=== PATIENT | male | born 1950 | race Caucasian/White ===

== ENCOUNTER → 2017-02-22 | Day surgery (SDC) | payer MEDICARE, OTHER ==
[~2017-02-22] MED LIST: ALBU18HF2 IH; ATOR40TA70 PO; CARV3.1242 PO; FURO40TA5 PO; LISI-186 PO; SPIR25TA4 PO
== END | disposition home or self-care (01) ==
LOC: CCL 05:39
PROVIDERS: ATTEND Internal Medicine Clinical Cardiac Electrophysiology
DX: I50.22 Chronic systolic (congestive) heart failure (principal); I42.0 Dilated cardiomyopathy; I44.7 Left bundle-branch block, unspecified; Z53.8 Procedure and treatment not carried out for other reasons

== ENCOUNTER 2017-08-03 09:05 | Day surgery (SDC) | payer MEDICARE, OTHER ==
[~2017-08-03] VITALS: Ht 175.3 cm; Wt 81.6 kg
[~2017-08-03 09:05] MED LIST changes: -CARV3.1242 PO; +POTA10TA15 PO
[2017-08-03 10:26] LABS: BASOPHILS % 0.5 % (0.0-2.0); EOSINOPHILS % 2.8 % (0.0-5.0); HEMATOCRIT. 42.1 % (42.0-52.0); HEMOGLOBIN. 14.4 g/dL (14.0-18.0); LYMPHOCYTES % 19.7 % (20.0-50.0); MEAN CORPUSCULAR HEMOGLOBIN 30.9 pg (28.0-32.0); MEAN CORPUSCULAR VOLUME 90.3 fL (80.0-94.0); MEAN PLATELET VOLUME 7.5 fl (7.4-10.4); PLATELET 172 x1000/uL (130-400); PROTHROMBIN TIME 10.9 sec (9.4-11.6); RED BLOOD CELL COUNT 4.66 mill/uL (4.7-6.1)
[2017-08-03 10:31] LABS: CARBON DIOXIDE 28 mEq/L (21-32); CHLORIDE 104 mEq/L (98-107)
[2017-08-03] MEDS ORDERED: LIDOCAINE HCL 1% 20ML VIAL (Pyxis) INJ ONE (11:30)
[2017-08-03] MEDS ORDERED: PROPOFOL 200MG/20ML VIAL IV ONE (11:30)
[2017-08-03] MEDS ORDERED: SUCCINYLCHOLINE CHLORIDE 200MG/10ML VIAL IV ONE (11:30)
[2017-08-03] MEDS ORDERED: MIDAZOLAM HCL 2 MG/2 ML VIAL ONE (11:44)
[2017-08-03] MEDS ORDERED: FENTANYL CITRATE/PF 50MCG/ML 2ML VIAL ONE (11:44)
[2017-08-03] MEDS ORDERED: HYDROMORPHONE HCL/PF 2MG/ML CPJ IV PRN (12:00)
[2017-08-03] MEDS ORDERED: LABETALOL HCL 20MG/4ML CARPUJECT IV PRN (12:00)
[2017-08-03] MEDS ORDERED: MEPERIDINE HCL/PF 25MG/ML CPJ IV PRN (12:00)
[2017-08-03] MEDS ORDERED: ONDANSETRON HCL 4MG/2ML VIAL IV PRN (12:00)
== END 2017-08-03 15:00 | disposition home or self-care (01) ==
LOC: CCL 09:05
PROVIDERS: ATTEND Internal Medicine Clinical Cardiac Electrophysiology
DX: I49.01 Ventricular fibrillation (principal); I50.9 Heart failure, unspecified; I42.0 Dilated cardiomyopathy; I44.7 Left bundle-branch block, unspecified
CPT/HCPCS: 36415; 80048; 85025; 85610; 93005; 93642; J0330; J2250; J3010; J3490; J2704

== ENCOUNTER 2019-07-13 00:57 | Inpatient (IN) | payer MEDICARE, MEDICAID ==
[~2019-07-13] VITALS: Ht 175.3 cm; Wt 83.9 kg
[~2019-07-13 00:57] MED LIST changes: -SPIR25TA4 PO; +SPIR25TA6 PO
[2019-07-13] MEDS ORDERED: SODIUM CHLORIDE 0.9% 1,000 ML IV ONE (01:34)
[2019-07-13 02:18] LABS: BASOPHILS % 0.6 % (0.0-2.0); EOSINOPHILS % 1.4 % (0.0-5.0); HEMATOCRIT. 42.5 % (42.0-52.0); HEMOGLOBIN. 14.5 g/dL (14.0-18.0); LYMPHOCYTES % 15.5 % (20.0-50.0); MEAN CORPUSCULAR HEMOGLOBIN 32.2 pg (28.0-32.0); MEAN CORPUSCULAR VOLUME 94.3 fL (80.0-94.0); MEAN PLATELET VOLUME 7.8 fl (7.4-10.4); MONOCYTES % 5.7 % (2.0-8.0); NEUTROPHILS % 76.8 % (40.0-76.0); PLATELET 206 x1000/uL (130-400); RED BLOOD CELL COUNT 4.51 mill/uL (4.7-6.1); RED CELL DISTRIBUTION WIDTH 13.9 % (11.6-14.6)
[2019-07-13 02:38] LABS: CHLORIDE 102 mEq/L (98-107)
[2019-07-13 02:43] LABS: ETHANOL BLOOD < 10 mg/dL
[2019-07-13 03:40] LABS: CLARITY URINE CLOUDY (CLEAR); COLOR URINE YELLOW (YELLOW); KETONES URINE TRACE (NEGATIVE); LEUKOCYTE ESTERASE URINE 2+ (NEGATIVE); NITRITE URINE NEGATIVE (NEGATIVE); OCCULT BLOOD URINE 3+ (NEGATIVE); PH URINE 7.5 (4.5-8.0); PROTEIN URINE 2+ (NEGATIVE)
[2019-07-13 04:06] LABS: *AMPHETAMINES SCREEN URINE NEGATIVE (NEGATIVE); *BARBITURATES SCREEN URINE NEGATIVE (NEGATIVE); *BENZODIAZEPINES SCREEN URINE NEGATIVE (NEGATIVE); *COCAINE SCREEN URINE NEGATIVE (NEGATIVE)
[2019-07-13 04:07] LABS: CANNABINOID URINE SCREEN NEGATIVE (NEGATIVE); METHADONE URINE SCREEN NEGATIVE (NEGATIVE); OPIATES URINE SCREEN NEGATIVE (NEGATIVE); PHENCYCLIDINE URINE SCREEN NEGATIVE (NEGATIVE)
[2019-07-13] MEDS ORDERED: CEFTRIAXONE 1 G PREMIX 50 ML IV NR (04:45)
[2019-07-13 08:00] VITALS: BP 96/60
[2019-07-13 08:10] VITALS: BP 96/60
[2019-07-13] MEDS ORDERED: ACETAMINOPHEN 650MG SUPP PR PRN (09:00)
[2019-07-13] MEDS ORDERED: DIPHENHYDRAMINE 50MG/ML VIAL IV PRN (09:00)
[2019-07-13] MEDS ORDERED: NA PHOS,M-B/NA PHOS,DI-BA ENEMA 118ML PR PRN (09:00)
[2019-07-13] MEDS ORDERED: GUAIFENESIN 200MG/10ML SUGAR FREE UDC PO PRN (09:00)
[2019-07-13] MEDS ORDERED: MAGNESIUM/ALUMINUM HYDROXIDE/SIMETHICONE 30ML UDC PO PRN (09:00)
[2019-07-13] MEDS ORDERED: ONDANSETRON HCL 4MG/2ML INJ IV PRN (09:00)
[2019-07-13] MEDS ORDERED: CLONIDINE 0.1MG TABLET PO PRN (09:00)
[2019-07-13] MEDS ORDERED: IPRATROPIUM/ALBUTEROL 0.5-3(2.5)MG/3ML NEB INH PRN (09:00)
[2019-07-13] MEDS ORDERED: ACETAMINOPHEN 650MG/20.3ML UDC GT PRN (09:00)
[2019-07-13] MEDS ORDERED: DOCUSATE SODIUM 100MG CAPSULE PO PRN (09:00)
[2019-07-13] MEDS: ENOXAPARIN 40MG/0.4ML SYR SUBCUT SCH (10:04)
[2019-07-13] MEDS: LEVOFLOXACIN 500MG PREMIX 100 ML IV SCH (11:32)
[2019-07-13 12:00] VITALS: BP 102/69
[2019-07-13] MEDS: SODIUM CHLORIDE 0.9% INJ 3ML FLUSH IVF SCH ×2 (13:17→22:29)
[2019-07-13] MEDS: HALOPERIDOL 0.5MG TABLET PO PRN ×2 (13:38→22:27)
[2019-07-13] MEDS: ACETAMINOPHEN 325MG TABLET PO PRN (14:56)
[2019-07-13] MEDS: NICOTINE 7MG PATCH TD SCH (15:44)
[2019-07-13 16:00] VITALS: BP 99/57
[2019-07-13 20:00] VITALS: BP 103/58
[2019-07-13 21:09] VITALS: BP 100/65
[2019-07-14] VITALS: BP 105/68
[2019-07-14] MEDS: CEFTRIAXONE 1 G PREMIX 50 ML IV SCH (05:18)
[2019-07-14] MEDS: SODIUM CHLORIDE 0.9% INJ 3ML FLUSH IVF SCH ×3 (05:22→21:32)
[2019-07-14 07:44] LABS: BASOPHILS % 1.1 % (0.0-2.0); EOSINOPHILS % 3.9 % (0.0-5.0); HEMATOCRIT. 38.1 % (42.0-52.0); HEMOGLOBIN. 13.1 g/dL (14.0-18.0); LYMPHOCYTES % 32.2 % (20.0-50.0); MEAN CORPUSCULAR HEMOGLOBIN 32.3 pg (28.0-32.0); MEAN CORPUSCULAR VOLUME 93.5 fL (80.0-94.0); MEAN PLATELET VOLUME 8.5 fl (7.4-10.4); MONOCYTES % 10.4 % (2.0-8.0); NEUTROPHILS % 52.4 % (40.0-76.0); PLATELET 173 x1000/uL (130-400); RED BLOOD CELL COUNT 4.07 mill/uL (4.7-6.1)
[2019-07-14 07:51] LABS: CHLORIDE 106 mEq/L (98-107)
[2019-07-14 08:00] VITALS: BP 102/54
[2019-07-14 08:00] LABS: LDL CHOLESTEROL 94 mg/dL (5-100)
[2019-07-14 08:02] LABS: HDL CHOLESTEROL 50 mg/dL (40-59)
[2019-07-14] MEDS: NICOTINE 7MG PATCH TD SCH (08:53)
[2019-07-14] MEDS: ENOXAPARIN 40MG/0.4ML SYR SUBCUT SCH (08:54)
[2019-07-14] MEDS: LEVOFLOXACIN 500MG PREMIX 100 ML IV SCH (10:16)
[2019-07-14 12:00] VITALS: BP 103/48
[2019-07-14] MEDS ORDERED: HYDROCODONE/ACETAMINOPHEN 5/325MG TABLET PO PRN (14:15)
[2019-07-14] MEDS ORDERED: HYDRALAZINE 20MG/ML VIAL IV PRN (14:15)
[2019-07-14] MEDS ORDERED: LORAZEPAM 2MG/ML CPJ IV PRN (14:15)
[2019-07-14] MEDS ORDERED: LACTULOSE 20G/30ML UDC PO PRN (14:15)
[2019-07-14 14:27] LABS: BG BASE EXCESS -2.3 mmol/L (-2.0-2.0); BG CARBOXYHEMOGLOBIN 1.1 % (0.5-1.5); BG DEOXYHEMOGLOBIN 3.8 % (0.0-5.0); BG HCO3 ACT 21.3 mmol/L (22.0-26.0); BG METHEMOGLOBIN 0.2 % (0.0-1.5); BG OXYGEN SATURATION 96.1 % (92.0-98.5); BG OXYHEMOGLOBIN 94.9 % (94.0-97.0); BG PH 7.427 (7.350-7.450); BG SAMPLE SITE RIGHT RADIAL; BG TOTAL HEMOGLOBIN 13.7 g/dL (12.0-18.0); BG VENT MODE ROOM AIR
[2019-07-14] MEDS: FUROSEMIDE 40MG/4ML VIAL IVP SCH (15:08)
[2019-07-14 16:00] VITALS: BP 94/62
[2019-07-14 19:09] LABS: PROTHROMBIN TIME 10.8 sec (9.6-11.0)
[2019-07-14 20:00] VITALS: BP 95/68
[2019-07-14 20:54] LABS: PROSTRATE SPECIFIC AG TOTAL 1.85 ng/mL (0.0-4.0)
[2019-07-14] MEDS: ACETAMINOPHEN 325MG TABLET PO PRN (21:28)
[2019-07-14] MEDS: HALOPERIDOL 0.5MG TABLET PO PRN (23:08)
[2019-07-15] VITALS: BP 112/77
[2019-07-15 04:00] VITALS: BP 107/71
[2019-07-15] MEDS: CEFTRIAXONE 1 G PREMIX 50 ML IV SCH (05:00)
[2019-07-15] MEDS: SODIUM CHLORIDE 0.9% INJ 3ML FLUSH IVF SCH ×3 (06:00→21:17)
[2019-07-15 08:00] VITALS: BP 97/76
[2019-07-15 08:20] LABS: HEMATOCRIT 39.3 % (42.0-52.0); HEMOGLOBIN 13.9 g/dL (14.0-18.0); MEAN CORPUSCULAR HEMOGLOBIN 32.8 pg (28.0-32.0); PLATELET 195 x1000/uL (130-400); RED BLOOD CELL COUNT 4.23 mill/uL (4.7-6.1); RED CELL DISTRIBUTION WIDTH 13.9 % (11.6-14.6)
[2019-07-15] MEDS: FUROSEMIDE 40MG/4ML VIAL IVP SCH (09:00)
[2019-07-15] MEDS: ENOXAPARIN 40MG/0.4ML SYR SUBCUT SCH (09:28)
[2019-07-15] MEDS: NICOTINE 7MG PATCH TD SCH (09:28)
[2019-07-15 11:17] LABS: CHLORIDE 107 mEq/L (98-107)
[2019-07-15] MEDS ORDERED: LORAZEPAM 2MG/ML CPJ IV PRN (14:15)
[2019-07-15] MEDS: FUROSEMIDE 40MG TABLET PO SCH (14:21)
[2019-07-15] MEDS: LEVOFLOXACIN 500MG TABLET PO SCH (14:21)
[2019-07-15] MEDS: ACETAMINOPHEN 325MG TABLET PO PRN (14:31)
[2019-07-15 16:00] VITALS: BP 115/54
[2019-07-15 20:00] VITALS: BP 109/54
[2019-07-15] MEDS: HALOPERIDOL 0.5MG TABLET PO PRN (21:17)
[2019-07-16] VITALS: BP 114/70
[2019-07-16 04:00] VITALS: BP 140/88
[2019-07-16] MEDS: SODIUM CHLORIDE 0.9% INJ 3ML FLUSH IVF SCH ×3 (05:58→20:34)
[2019-07-16] MEDS: LEVOFLOXACIN 500MG TABLET PO SCH (10:08)
[2019-07-16] MEDS: FUROSEMIDE 40MG TABLET PO SCH (10:09)
[2019-07-16] MEDS: ENOXAPARIN 40MG/0.4ML SYR SUBCUT SCH (10:09)
[2019-07-16] MEDS: NICOTINE 7MG PATCH TD SCH (10:10)
[2019-07-16 12:00] VITALS: BP 100/70
[2019-07-16 16:00] VITALS: BP 104/71
[2019-07-16 20:00] VITALS: BP 104/74
[2019-07-16] MEDS: HALOPERIDOL 0.5MG TABLET PO PRN (21:42)
[2019-07-17] VITALS: BP 93/63
[2019-07-17 04:00] VITALS: BP 108/69
[2019-07-17] MEDS: SODIUM CHLORIDE 0.9% INJ 3ML FLUSH IVF SCH ×3 (06:27→22:00)
[2019-07-17 08:00] VITALS: BP 102/62
[2019-07-17] MEDS: FUROSEMIDE 40MG TABLET PO SCH (09:14)
[2019-07-17] MEDS: ENOXAPARIN 40MG/0.4ML SYR SUBCUT SCH (09:15)
[2019-07-17] MEDS: NICOTINE 7MG PATCH TD SCH (09:15)
[2019-07-17] MEDS: LEVOFLOXACIN 500MG TABLET PO SCH (11:55)
[2019-07-17 16:00] VITALS: BP 95/54
[2019-07-17 20:00] VITALS: BP 109/48
[2019-07-17] MEDS: HALOPERIDOL 0.5MG TABLET PO PRN (23:11)
[2019-07-17] MEDS: ATORVASTATIN CALCIUM 10MG TABLET PO SCH (23:13)
[2019-07-18 04:00] VITALS: BP 107/60
[2019-07-18] MEDS: SODIUM CHLORIDE 0.9% INJ 3ML FLUSH IVF SCH ×3 (06:32→20:10)
[2019-07-18 08:00] VITALS: BP 95/63
[2019-07-18] MEDS: FUROSEMIDE 40MG TABLET PO SCH (09:03)
[2019-07-18] MEDS: NICOTINE 7MG PATCH TD SCH (09:03)
[2019-07-18] MEDS: ENOXAPARIN 40MG/0.4ML SYR SUBCUT SCH (09:04)
[2019-07-18 09:29] LABS: HEMATOCRIT 36.4 % (42.0-52.0); HEMOGLOBIN 12.4 g/dL (14.0-18.0); MEAN CORPUSCULAR HEMOGLOBIN 32.1 pg (28.0-32.0); PLATELET 159 x1000/uL (130-400); RED BLOOD CELL COUNT 3.88 mill/uL (4.7-6.1); RED CELL DISTRIBUTION WIDTH 13.8 % (11.6-14.6)
[2019-07-18 09:37] LABS: CHLORIDE 106 mEq/L (98-107)
[2019-07-18 12:00] VITALS: BP 94/57
[2019-07-18] MEDS: LEVOFLOXACIN 500MG TABLET PO SCH (12:50)
[2019-07-18] MEDS: ACETAMINOPHEN 325MG TABLET PO PRN (12:51)
[2019-07-18 17:17] VITALS: BP 98/59
[2019-07-18] MEDS: HALOPERIDOL 0.5MG TABLET PO PRN (18:40)
[2019-07-18 20:00] VITALS: BP 104/65
[2019-07-18] MEDS: RISPERIDONE 0.5MG TABLET PO SCH (20:10)
[2019-07-18] MEDS: ATORVASTATIN CALCIUM 10MG TABLET PO SCH (20:10)
[2019-07-18] MEDS: DIPHENHYDRAMINE 50MG/ML VIAL IV PRN (23:15)
[2019-07-18 23:56] VITALS: BP 111/75
[2019-07-19 04:00] VITALS: BP 115/75
[2019-07-19] MEDS: SODIUM CHLORIDE 0.9% INJ 3ML FLUSH IVF SCH ×3 (06:30→21:01)
[2019-07-19 08:00] VITALS: BP 101/59
[2019-07-19] MEDS: RISPERIDONE 0.5MG TABLET PO SCH (09:22)
[2019-07-19] MEDS: ENOXAPARIN 40MG/0.4ML SYR SUBCUT SCH (09:23)
[2019-07-19] MEDS: FUROSEMIDE 40MG TABLET PO SCH (09:23)
[2019-07-19] MEDS: NICOTINE 7MG PATCH TD SCH (09:23)
[2019-07-19] MEDS: LEVOFLOXACIN 500MG TABLET PO SCH (10:44)
[2019-07-19 12:00] VITALS: BP 99/63
[2019-07-19 16:00] VITALS: BP 91/58
[2019-07-19] MEDS: ACETAMINOPHEN 325MG TABLET PO PRN (16:12)
[2019-07-19 20:00] VITALS: BP 109/67
[2019-07-19] MEDS: ATORVASTATIN CALCIUM 10MG TABLET PO SCH (21:01)
[2019-07-19] MEDS: RISPERIDONE 1MG TABLET PO SCH (21:34)
[2019-07-20] VITALS: BP 111/73
[2019-07-20 04:00] VITALS: BP 104/55
[2019-07-20] MEDS: HALOPERIDOL 0.5MG TABLET PO PRN (04:57)
[2019-07-20] MEDS: ACETAMINOPHEN 325MG TABLET PO PRN ×3 (04:58→22:29)
[2019-07-20] MEDS: SODIUM CHLORIDE 0.9% INJ 3ML FLUSH IVF SCH ×3 (05:00→23:01)
[2019-07-20 08:00] VITALS: BP 94/60
[2019-07-20] MEDS: ENOXAPARIN 40MG/0.4ML SYR SUBCUT SCH (10:00)
[2019-07-20] MEDS: RISPERIDONE 1MG TABLET PO SCH ×2 (10:00→22:38)
[2019-07-20] MEDS: NICOTINE 7MG PATCH TD SCH (10:00)
[2019-07-20] MEDS: FUROSEMIDE 40MG TABLET PO SCH (10:00)
[2019-07-20 12:00] VITALS: BP 104/44
[2019-07-20] MEDS: LEVOFLOXACIN 500MG TABLET PO SCH (12:29)
[2019-07-20 16:00] VITALS: BP 104/66
[2019-07-20 20:00] VITALS: BP 101/46
[2019-07-20] MEDS: ATORVASTATIN CALCIUM 10MG TABLET PO SCH (22:37)
[2019-07-21] VITALS: BP_SYST 100; BP_SYST 94; BP_DIAS 58; BP_DIAS 59
[2019-07-21 04:00] VITALS: BP 94/59
[2019-07-21] MEDS: SODIUM CHLORIDE 0.9% INJ 3ML FLUSH IVF SCH ×3 (05:39→22:00)
[2019-07-21 07:05] LABS: EOSINOPHILS % 5.8 % (0.0-5.0); HEMATOCRIT. 33.4 % (42.0-52.0); HEMOGLOBIN. 11.6 g/dL (14.0-18.0); LYMPHOCYTES % 34.2 % (20.0-50.0); MEAN CORPUSCULAR HEMOGLOBIN 32.4 pg (28.0-32.0); MEAN CORPUSCULAR VOLUME 93.7 fL (80.0-94.0); MEAN PLATELET VOLUME 8.4 fl (7.4-10.4); MONOCYTES % 8.9 % (2.0-8.0); NEUTROPHILS % 50.1 % (40.0-76.0); PLATELET 161 x1000/uL (130-400); RED BLOOD CELL COUNT 3.57 mill/uL (4.7-6.1); RED CELL DISTRIBUTION WIDTH 13.9 % (11.6-14.6)
[2019-07-21 07:14] LABS: CHLORIDE 109 mEq/L (98-107)
[2019-07-21] MEDS: FUROSEMIDE 40MG TABLET PO SCH (09:17)
[2019-07-21] MEDS: ENOXAPARIN 40MG/0.4ML SYR SUBCUT SCH (09:17)
[2019-07-21] MEDS: NICOTINE 7MG PATCH TD SCH (09:17)
[2019-07-21] MEDS: RISPERIDONE 1MG TABLET PO SCH ×2 (09:17→22:07)
[2019-07-21] MEDS: LEVOFLOXACIN 500MG TABLET PO SCH (10:50)
[2019-07-21 12:00] VITALS: BP 100/48
[2019-07-21 16:00] VITALS: BP 100/50
[2019-07-21 20:10] VITALS: BP 102/45
[2019-07-21] MEDS: ATORVASTATIN CALCIUM 10MG TABLET PO SCH (20:14)
[2019-07-21] MEDS: ACETAMINOPHEN 325MG TABLET PO PRN (20:15)
[2019-07-22 00:51] VITALS: BP 91/59
[2019-07-22] MEDS: ACETAMINOPHEN 325MG TABLET PO PRN ×2 (03:29→16:49)
[2019-07-22 04:00] VITALS: BP 94/61
[2019-07-22] MEDS: SODIUM CHLORIDE 0.9% INJ 3ML FLUSH IVF SCH ×3 (06:23→22:13)
[2019-07-22 08:00] VITALS: BP 103/41
[2019-07-22] MEDS: NICOTINE 7MG PATCH TD SCH (09:46)
[2019-07-22] MEDS: ENOXAPARIN 40MG/0.4ML SYR SUBCUT SCH (09:46)
[2019-07-22] MEDS: FUROSEMIDE 40MG TABLET PO SCH (09:46)
[2019-07-22] MEDS: RISPERIDONE 1MG TABLET PO SCH ×2 (09:46→20:54)
[2019-07-22] MEDS: LEVOFLOXACIN 500MG TABLET PO SCH (10:27)
[2019-07-22 12:00] VITALS: BP 108/51
[2019-07-22 16:00] VITALS: BP 108/56
[2019-07-22 20:00] VITALS: BP 108/57
[2019-07-22] MEDS: HALOPERIDOL 0.5MG TABLET PO PRN (20:53)
[2019-07-22] MEDS: ATORVASTATIN CALCIUM 10MG TABLET PO SCH (20:53)
[2019-07-23] VITALS: BP 117/57
[2019-07-23 04:00] VITALS: BP 106/47
[2019-07-23] MEDS: SODIUM CHLORIDE 0.9% INJ 3ML FLUSH IVF SCH ×3 (06:10→21:29)
[2019-07-23 08:08] VITALS: BP 108/45
[2019-07-23] MEDS: NICOTINE 7MG PATCH TD SCH (09:25)
[2019-07-23] MEDS: FUROSEMIDE 40MG TABLET PO SCH (09:25)
[2019-07-23] MEDS: RISPERIDONE 1MG TABLET PO SCH ×2 (09:25→20:54)
[2019-07-23] MEDS: ENOXAPARIN 40MG/0.4ML SYR SUBCUT SCH (09:26)
[2019-07-23 12:00] VITALS: BP 116/48
[2019-07-23 16:04] VITALS: BP 116/52
[2019-07-23 20:00] VITALS: BP 105/68
[2019-07-23] MEDS: ATORVASTATIN CALCIUM 10MG TABLET PO SCH (20:54)
[2019-07-23] MEDS: HALOPERIDOL 0.5MG TABLET PO PRN (20:54)
[2019-07-23] MEDS: QUETIAPINE FUMARATE 25MG TABLET PO SCH (23:02)
[2019-07-24] VITALS: BP 107/67
[2019-07-24 04:00] VITALS: BP 108/69
[2019-07-24] MEDS: SODIUM CHLORIDE 0.9% INJ 3ML FLUSH IVF SCH ×3 (06:36→21:09)
[2019-07-24 08:00] VITALS: BP 94/44
[2019-07-24] MEDS: FUROSEMIDE 40MG TABLET PO SCH (09:23)
[2019-07-24] MEDS: RISPERIDONE 1MG TABLET PO SCH ×2 (09:23→21:09)
[2019-07-24] MEDS: QUETIAPINE FUMARATE 25MG TABLET PO SCH ×2 (09:23→21:09)
[2019-07-24] MEDS: NICOTINE 7MG PATCH TD SCH (09:31)
[2019-07-24] MEDS: ENOXAPARIN 40MG/0.4ML SYR SUBCUT SCH (09:32)
[2019-07-24 12:00] VITALS: BP 103/64
[2019-07-24 16:00] VITALS: BP 106/68
[2019-07-24] MEDS: ACETAMINOPHEN 325MG TABLET PO PRN (16:14)
[2019-07-24 20:00] VITALS: BP 104/72
[2019-07-24] MEDS: ATORVASTATIN CALCIUM 10MG TABLET PO SCH (21:09)
[2019-07-25] VITALS: BP 101/61
[2019-07-25 04:00] VITALS: BP 108/64
[2019-07-25] MEDS: SODIUM CHLORIDE 0.9% INJ 3ML FLUSH IVF SCH ×3 (05:44→21:40)
[2019-07-25 08:00] VITALS: BP 101/66
[2019-07-25 08:11] LABS: HEMATOCRIT 35.1 % (42.0-52.0); HEMOGLOBIN 12.2 g/dL (14.0-18.0); MEAN CORPUSCULAR HEMOGLOBIN 32.7 pg (28.0-32.0); MEAN CORPUSCULAR VOLUME 94.1 fL (80.0-94.0); PLATELET 177 x1000/uL (130-400); RED BLOOD CELL COUNT 3.72 mill/uL (4.7-6.1); RED CELL DISTRIBUTION WIDTH 14.1 % (11.6-14.6)
[2019-07-25] MEDS: QUETIAPINE FUMARATE 25MG TABLET PO SCH ×2 (09:15→21:40)
[2019-07-25] MEDS: ENOXAPARIN 40MG/0.4ML SYR SUBCUT SCH (09:15)
[2019-07-25] MEDS: RISPERIDONE 1MG TABLET PO SCH ×2 (09:15→21:39)
[2019-07-25] MEDS: NICOTINE 7MG PATCH TD SCH (09:15)
[2019-07-25] MEDS: FUROSEMIDE 40MG TABLET PO SCH (09:15)
[2019-07-25 09:31] LABS: CHLORIDE 107 mEq/L (98-107)
[2019-07-25 12:00] VITALS: BP 104/64
[2019-07-25 16:00] VITALS: BP 106/66
[2019-07-25 20:00] VITALS: BP 106/41
[2019-07-25] MEDS: ATORVASTATIN CALCIUM 10MG TABLET PO SCH (21:39)
[2019-07-26] VITALS: BP 101/42
[2019-07-26 04:00] VITALS: BP 106/68
[2019-07-26] MEDS: SODIUM CHLORIDE 0.9% INJ 3ML FLUSH IVF SCH ×3 (06:33→20:23)
[2019-07-26 08:00] VITALS: BP 100/69
[2019-07-26] MEDS: QUETIAPINE FUMARATE 25MG TABLET PO SCH ×2 (08:51→20:22)
[2019-07-26] MEDS: FUROSEMIDE 40MG TABLET PO SCH (08:51)
[2019-07-26] MEDS: ENOXAPARIN 40MG/0.4ML SYR SUBCUT SCH (08:52)
[2019-07-26] MEDS: NICOTINE 7MG PATCH TD SCH (08:52)
[2019-07-26] MEDS: RISPERIDONE 1MG TABLET PO SCH ×2 (08:52→20:22)
[2019-07-26] MEDS: ACETAMINOPHEN 325MG TABLET PO PRN (13:59)
[2019-07-26 16:00] VITALS: BP 106/51
[2019-07-26 20:00] VITALS: BP 107/64
[2019-07-26] MEDS: ATORVASTATIN CALCIUM 10MG TABLET PO SCH (20:22)
[2019-07-27] VITALS: BP 113/73
[2019-07-27 04:00] VITALS: BP 121/65
[2019-07-27] MEDS: SODIUM CHLORIDE 0.9% INJ 3ML FLUSH IVF SCH ×3 (06:44→20:34)
[2019-07-27 08:00] VITALS: BP 103/69
[2019-07-27] MEDS: QUETIAPINE FUMARATE 25MG TABLET PO SCH ×2 (08:29→20:33)
[2019-07-27] MEDS: RISPERIDONE 1MG TABLET PO SCH ×2 (08:29→20:33)
[2019-07-27] MEDS: NICOTINE 7MG PATCH TD SCH (08:29)
[2019-07-27] MEDS: FUROSEMIDE 40MG TABLET PO SCH (08:29)
[2019-07-27] MEDS: ENOXAPARIN 40MG/0.4ML SYR SUBCUT SCH (08:30)
[2019-07-27 12:00] VITALS: BP 77/47
[2019-07-27 16:00] VITALS: BP 106/51
[2019-07-27 20:00] VITALS: BP 112/42
[2019-07-27] MEDS: ATORVASTATIN CALCIUM 10MG TABLET PO SCH (20:33)
[2019-07-28] VITALS: BP 104/70
[2019-07-28 04:00] VITALS: BP 110/65
[2019-07-28] MEDS: SODIUM CHLORIDE 0.9% INJ 3ML FLUSH IVF SCH ×3 (06:27→22:09)
[2019-07-28 08:00] VITALS: BP 129/110
[2019-07-28] MEDS: NICOTINE 7MG PATCH TD SCH (09:28)
[2019-07-28] MEDS: RISPERIDONE 1MG TABLET PO SCH ×2 (09:28→20:52)
[2019-07-28] MEDS: QUETIAPINE FUMARATE 25MG TABLET PO SCH ×2 (09:28→20:52)
[2019-07-28] MEDS: ENOXAPARIN 40MG/0.4ML SYR SUBCUT SCH (09:29)
[2019-07-28 12:00] VITALS: BP 125/65
[2019-07-28] MEDS: ACETAMINOPHEN 325MG TABLET PO PRN (14:46)
[2019-07-28 16:00] VITALS: BP 112/46
[2019-07-28 20:00] VITALS: BP 103/56
[2019-07-28] MEDS: ATORVASTATIN CALCIUM 10MG TABLET PO SCH (20:52)
[2019-07-29] VITALS: BP 101/45
[2019-07-29 04:00] VITALS: BP 99/58
[2019-07-29] MEDS: SODIUM CHLORIDE 0.9% INJ 3ML FLUSH IVF SCH ×3 (05:20→21:25)
[2019-07-29 08:00] VITALS: BP 107/66
[2019-07-29] MEDS: NICOTINE 7MG PATCH TD SCH (09:54)
[2019-07-29] MEDS: QUETIAPINE FUMARATE 25MG TABLET PO SCH ×2 (09:54→21:24)
[2019-07-29] MEDS: ENOXAPARIN 40MG/0.4ML SYR SUBCUT SCH (09:54)
[2019-07-29] MEDS: RISPERIDONE 1MG TABLET PO SCH ×2 (09:54→21:24)
[2019-07-29 12:00] VITALS: BP 104/45
[2019-07-29 16:00] VITALS: BP 101/63
[2019-07-29] MEDS: ACETAMINOPHEN 325MG TABLET PO PRN (18:37)
[2019-07-29 20:00] VITALS: BP 103/66
[2019-07-29] MEDS: ATORVASTATIN CALCIUM 10MG TABLET PO SCH (21:24)
[2019-07-30] VITALS: BP 102/65
[2019-07-30] MEDS: ACETAMINOPHEN 325MG TABLET PO PRN ×2 (00:54→13:46)
[2019-07-30 04:00] VITALS: BP 107/65
[2019-07-30] MEDS: SODIUM CHLORIDE 0.9% INJ 3ML FLUSH IVF SCH ×3 (05:56→21:32)
[2019-07-30 08:00] VITALS: BP 110/70
[2019-07-30] MEDS: QUETIAPINE FUMARATE 25MG TABLET PO SCH ×2 (08:26→20:37)
[2019-07-30] MEDS: NICOTINE 7MG PATCH TD SCH (08:26)
[2019-07-30] MEDS: RISPERIDONE 1MG TABLET PO SCH ×2 (08:26→20:37)
[2019-07-30] MEDS: ENOXAPARIN 40MG/0.4ML SYR SUBCUT SCH (08:27)
[2019-07-30 12:00] VITALS: BP 105/60
[2019-07-30 16:00] VITALS: BP 113/75
[2019-07-30 20:00] VITALS: BP_SYST 155; BP_SYST 99; BP_DIAS 65; BP_DIAS 99
[2019-07-30] MEDS: ATORVASTATIN CALCIUM 10MG TABLET PO SCH (20:37)
[2019-07-31] VITALS: BP 116/69
[2019-07-31 04:00] VITALS: BP 107/45
[2019-07-31] MEDS: SODIUM CHLORIDE 0.9% INJ 3ML FLUSH IVF SCH ×3 (05:02→21:45)
[2019-07-31 08:00] VITALS: BP 103/64
[2019-07-31] MEDS: ENOXAPARIN 40MG/0.4ML SYR SUBCUT SCH (08:25)
[2019-07-31] MEDS: RISPERIDONE 1MG TABLET PO SCH ×2 (08:26→20:00)
[2019-07-31] MEDS: QUETIAPINE FUMARATE 25MG TABLET PO SCH ×2 (08:26→20:00)
[2019-07-31] MEDS: NICOTINE 7MG PATCH TD SCH (08:26)
[2019-07-31 12:00] VITALS: BP 156/72
[2019-07-31 16:00] VITALS: BP 110/58
[2019-07-31] MEDS: ACETAMINOPHEN 325MG TABLET PO PRN (16:00)
[2019-07-31 20:00] VITALS: BP 104/45
[2019-07-31] MEDS: ATORVASTATIN CALCIUM 10MG TABLET PO SCH (20:00)
[2019-08-01] VITALS: BP 111/90
[2019-08-01 04:00] VITALS: BP 107/51
[2019-08-01] MEDS: SODIUM CHLORIDE 0.9% INJ 3ML FLUSH IVF SCH ×3 (05:12→21:16)
[2019-08-01 07:38] LABS: HEMATOCRIT 36.2 % (42.0-52.0); HEMOGLOBIN 12.3 g/dL (14.0-18.0); MEAN CORPUSCULAR HEMOGLOBIN 32.4 pg (28.0-32.0); MEAN CORPUSCULAR VOLUME 95.4 fL (80.0-94.0); PLATELET 183 x1000/uL (130-400); RED CELL DISTRIBUTION WIDTH 14.3 % (11.6-14.6)
[2019-08-01 07:58] LABS: CHLORIDE 112 mEq/L (98-107)
[2019-08-01 08:00] VITALS: BP 117/76
[2019-08-01] MEDS: RISPERIDONE 1MG TABLET PO SCH ×2 (08:26→21:16)
[2019-08-01] MEDS: QUETIAPINE FUMARATE 25MG TABLET PO SCH ×2 (08:26→21:16)
[2019-08-01] MEDS: NICOTINE 7MG PATCH TD SCH (08:27)
[2019-08-01] MEDS: ENOXAPARIN 40MG/0.4ML SYR SUBCUT SCH (08:27)
[2019-08-01 12:00] VITALS: BP 118/64
[2019-08-01 16:00] VITALS: BP 115/58
[2019-08-01 20:00] VITALS: BP 111/77
[2019-08-01] MEDS: ATORVASTATIN CALCIUM 10MG TABLET PO SCH (21:16)
[2019-08-02] VITALS: BP_SYST 108; BP_DIAS 45; BP_DIAS 49
[2019-08-02 04:00] VITALS: BP 115/82
[2019-08-02] MEDS: SODIUM CHLORIDE 0.9% INJ 3ML FLUSH IVF SCH ×3 (06:37→21:26)
[2019-08-02 08:00] VITALS: BP 110/84
[2019-08-02] MEDS: ENOXAPARIN 40MG/0.4ML SYR SUBCUT SCH (09:38)
[2019-08-02] MEDS: QUETIAPINE FUMARATE 25MG TABLET PO SCH ×2 (09:38→21:25)
[2019-08-02] MEDS: RISPERIDONE 1MG TABLET PO SCH ×2 (09:38→21:25)
[2019-08-02 12:00] VITALS: BP 116/62
[2019-08-02 16:00] VITALS: BP 114/66
[2019-08-02 20:00] VITALS: BP 111/83
[2019-08-02] MEDS: ATORVASTATIN CALCIUM 10MG TABLET PO SCH (21:25)
[2019-08-03 00:33] VITALS: BP 115/49
[2019-08-03 04:00] VITALS: BP 116/80
[2019-08-03] MEDS: SODIUM CHLORIDE 0.9% INJ 3ML FLUSH IVF SCH ×3 (07:05→21:44)
[2019-08-03 08:00] VITALS: BP 133/70
[2019-08-03] MEDS: QUETIAPINE FUMARATE 25MG TABLET PO SCH ×2 (08:43→20:01)
[2019-08-03] MEDS: RISPERIDONE 1MG TABLET PO SCH ×2 (08:43→20:01)
[2019-08-03] MEDS: ENOXAPARIN 40MG/0.4ML SYR SUBCUT SCH (08:43)
[2019-08-03 12:00] VITALS: BP 118/76
[2019-08-03 16:00] VITALS: BP 104/75
[2019-08-03] MEDS: ACETAMINOPHEN 325MG TABLET PO PRN ×2 (17:18→19:55)
[2019-08-03] MEDS: ATORVASTATIN CALCIUM 10MG TABLET PO SCH (20:01)
[2019-08-03 20:47] VITALS: BP 113/79
[2019-08-03] MEDS: DIPHENHYDRAMINE 50MG/ML VIAL IV PRN (21:44)
[2019-08-04] VITALS: BP 121/71
[2019-08-04 04:00] VITALS: BP 125/76
[2019-08-04] MEDS: SODIUM CHLORIDE 0.9% INJ 3ML FLUSH IVF SCH ×3 (06:00→21:26)
[2019-08-04 08:00] VITALS: BP 106/74
[2019-08-04] MEDS: ENOXAPARIN 40MG/0.4ML SYR SUBCUT SCH (08:12)
[2019-08-04] MEDS: RISPERIDONE 1MG TABLET PO SCH ×2 (08:12→20:29)
[2019-08-04] MEDS: QUETIAPINE FUMARATE 25MG TABLET PO SCH ×2 (08:12→20:29)
[2019-08-04 12:00] VITALS: BP 104/67
[2019-08-04 16:00] VITALS: BP 113/77
[2019-08-04 20:00] VITALS: BP 109/58
[2019-08-04] MEDS: ATORVASTATIN CALCIUM 10MG TABLET PO SCH (20:29)
[2019-08-05] VITALS: BP 115/60
[2019-08-05 04:00] VITALS: BP 118/59
[2019-08-05] MEDS: HALOPERIDOL 0.5MG TABLET PO PRN (04:11)
[2019-08-05] MEDS: SODIUM CHLORIDE 0.9% INJ 3ML FLUSH IVF SCH ×3 (05:46→22:05)
[2019-08-05 08:00] VITALS: BP 102/43
[2019-08-05] MEDS: QUETIAPINE FUMARATE 25MG TABLET PO SCH ×2 (08:37→22:05)
[2019-08-05] MEDS: RISPERIDONE 1MG TABLET PO SCH ×2 (08:37→22:05)
[2019-08-05] MEDS: ENOXAPARIN 40MG/0.4ML SYR SUBCUT SCH (08:38)
[2019-08-05 12:00] VITALS: BP 107/53
[2019-08-05] MEDS: ACETAMINOPHEN 325MG TABLET PO PRN (14:00)
[2019-08-05 16:00] VITALS: BP 99/68
[2019-08-05 20:00] VITALS: BP 106/54
[2019-08-05] MEDS: ATORVASTATIN CALCIUM 10MG TABLET PO SCH (22:04)
[2019-08-06] VITALS: BP 113/46
[2019-08-06 04:00] VITALS: BP 107/72
[2019-08-06] MEDS: SODIUM CHLORIDE 0.9% INJ 3ML FLUSH IVF SCH ×3 (07:16→21:48)
[2019-08-06 07:29] LABS: BASOPHILS % 0.7 % (0.0-2.0); EOSINOPHILS % 4.9 % (0.0-5.0); HEMATOCRIT. 36.6 % (42.0-52.0); HEMOGLOBIN. 12.2 g/dL (14.0-18.0); LYMPHOCYTES % 25.7 % (20.0-50.0); MEAN CORPUSCULAR HEMOGLOBIN 32.2 pg (28.0-32.0); MEAN CORPUSCULAR VOLUME 96.5 fL (80.0-94.0); MEAN PLATELET VOLUME 7.4 fl (7.4-10.4); MONOCYTES % 9.4 % (2.0-8.0); NEUTROPHILS % 59.3 % (40.0-76.0); PLATELET 182 x1000/uL (130-400); RED BLOOD CELL COUNT 3.79 mill/uL (4.7-6.1)
[2019-08-06 08:00] VITALS: BP 106/70
[2019-08-06] MEDS: RISPERIDONE 1MG TABLET PO SCH ×2 (08:31→21:48)
[2019-08-06] MEDS: QUETIAPINE FUMARATE 25MG TABLET PO SCH ×2 (08:32→21:48)
[2019-08-06] MEDS: ENOXAPARIN 40MG/0.4ML SYR SUBCUT SCH (08:32)
[2019-08-06 11:57] VITALS: BP 102/53
[2019-08-06] MEDS: ACETAMINOPHEN 325MG TABLET PO PRN (14:54)
[2019-08-06] MEDS: HALOPERIDOL 0.5MG TABLET PO PRN ×2 (15:49→23:09)
[2019-08-06 16:00] VITALS: BP 136/70
[2019-08-06 20:00] VITALS: BP 121/61
[2019-08-06] MEDS: ATORVASTATIN CALCIUM 10MG TABLET PO SCH (21:48)
[2019-08-07] VITALS: BP 113/55
[2019-08-07 04:00] VITALS: BP 103/68
[2019-08-07] MEDS: SODIUM CHLORIDE 0.9% INJ 3ML FLUSH IVF SCH ×3 (06:39→21:26)
[2019-08-07 08:00] VITALS: BP 110/75
[2019-08-07] MEDS: QUETIAPINE FUMARATE 25MG TABLET PO SCH ×2 (09:31→21:26)
[2019-08-07] MEDS: RISPERIDONE 1MG TABLET PO SCH ×2 (09:31→21:26)
[2019-08-07] MEDS: ENOXAPARIN 40MG/0.4ML SYR SUBCUT SCH (09:32)
[2019-08-07 12:00] VITALS: BP 104/71
[2019-08-07 16:00] VITALS: BP 112/62
[2019-08-07] MEDS: HALOPERIDOL 0.5MG TABLET PO PRN (19:13)
[2019-08-07 20:00] VITALS: BP 101/34
[2019-08-07] MEDS: ATORVASTATIN CALCIUM 10MG TABLET PO SCH (21:26)
[2019-08-08] VITALS: BP 106/69
[2019-08-08] MEDS: HALOPERIDOL 0.5MG TABLET PO PRN ×2 (03:04→07:55)
[2019-08-08] MEDS: SODIUM CHLORIDE 0.9% INJ 3ML FLUSH IVF SCH ×2 (05:35→14:00)
[2019-08-08] MEDS: ENOXAPARIN 40MG/0.4ML SYR SUBCUT SCH (07:54)
[2019-08-08] MEDS: RISPERIDONE 1MG TABLET PO SCH (07:55)
[2019-08-08] MEDS: QUETIAPINE FUMARATE 25MG TABLET PO SCH (07:55)
[2019-08-08 08:00] VITALS: BP 113/49
[2019-08-08] MEDS: ACETAMINOPHEN 325MG TABLET PO PRN ×2 (09:20→16:29)
[2019-08-08 12:00] VITALS: BP 110/58
[2019-08-08 13:32] VITALS: BP 110/58
[2019-08-08 16:00] VITALS: BP 106/55
== END 2019-08-08 18:00 | DRG 71 ==
LOC: ER 00:57 → 6EST 04:35 → EDBEDREQTM 05:09 → EDBEDREQ 05:09 → ENRESERV 07:04 → 8WST 21:00 → 5WST 07-20 15:15
PROVIDERS: ADMIT Internal Medicine; ATTEND Internal Medicine
DX: G93.49 Other encephalopathy (principal); N39.0 Urinary tract infection, site not specified; I42.9 Cardiomyopathy, unspecified; D68.59 Other primary thrombophilia; I50.22 Chronic systolic (congestive) heart failure; F03.91 Unspecified dementia, unspecified severity, with behavioral disturbance; I11.0 Hypertensive heart disease with heart failure; R73.9 Hyperglycemia, unspecified; E78.5 Hyperlipidemia, unspecified; F17.210 Nicotine dependence, cigarettes, uncomplicated; Z95.810 Presence of automatic (implantable) cardiac defibrillator; Z91.83 Wandering in diseases classified elsewhere; Z86.73 Personal history of transient ischemic attack (TIA), and cerebral infarction without residual deficits; Z79.899 Other long term (current) drug therapy
CPT/HCPCS: 36415; 36600; 71045; 80048; 80061; 80305; 80307; 80320; 80329; 81003; 82140; 82375; 82607; 82805; 82962; 83036; 83880; 84153; 84443; 84484; 85027; 86592; 93005; 93306; 93970; 96365; 99285; C1893; J0696; J1200; J1650; J1940; J1956; J2060; J7030; G0103; G0480